=== PATIENT | female | born 1955 | race Two or more races ===

== ENCOUNTER 2020-06-22 19:50 | Emergency (ER) | payer OTHER ==
[~2020-06-22] VITALS: Ht 165.1 cm; Wt 77.1 kg
[~2020-06-22 19:50] MED LIST: COZAAR25 MG
[2020-06-22] MEDS ORDERED: LEVO-T75 MCG (20:01)
[2020-06-22] MEDS ORDERED: [UNRECOGNIZED DRUG - OTHER] (20:02)
== END 2020-06-22 20:34 | disposition home or self-care (01) ==
LOC: ER 19:50
DX: S61.421A Laceration with foreign body of right hand, initial encounter (principal); W26.0XXA Contact with knife, initial encounter; Y93.89 Activity, other specified; Y92.018 Other place in single-family (private) house as the place of occurrence of the external cause; Y99.8 Other external cause status